=== PATIENT | female | born 1975 | race African-American/Black ===

== ENCOUNTER 2016-07-27 11:43 | Emergency (ER) | payer OTHER ==
[2016-07-27 11:53] VITALS: BP 154/82; PULSE 83; TEMP 98.8; BMI 41.6
--- NOTE | 2016-07-27 12:15 | PDOC ---
History of Present Illness - General Chief Complaint: Asthma Stated Complaint: SOB/WHEEZING Time Seen by Provider: 07/27/16 12:04 History Source: Patient Exam Limitations: No Limitations - History of Present Illness Initial Comments: 07/27/16 12:10 40 yr female with history of asthma, sarcoidosis presents with cough for 2 weeks getting worse with chest tightness and pain to the middle of her chest. Pt pulmonary is . Severity: reports: moderate Possible Cause: Yes: frequent episodes Associated Symptoms: reports: chest pain/soreness Past History - Past Medical History Allergies/Adverse Reactions: Allergies Allergy/AdvReac Type Severity Reaction Status Date / Time No Known Allergies Allergy Verified 07/27/16 11:49 Home Medications: Ambulatory Orders Mometasone Furoate [Asmanex Hfa] 13 gm IH DAILY 07/27/16 Prednisone [Deltasone -] 40 mg PO DAILY #10 tablet 07/27/16 Anemia: No Asthma: Yes Cancer: No Cardiac Disorders: No CVA: No COPD: No CHF: No Dementia: No Diabetes: No GI Disorders: No Disorders: Yes (CERVICAL BIOPSY 1999) HTN: No Hypercholesterolemia: No Liver Disease: No Seizures: No Thyroid Disease: No - Surgical History Abdominal Surgery: No Appendectomy: Yes Cardiac Surgery: No Cholecystectomy: No Lung Surgery: Yes Neurologic Surgery: No Orthopedic Surgery: No - Immunization History Immunization Up to Date: Yes - Psycho/Social/Smoking Cessation Hx Anxiety: No Suicidal Ideation: No Smoking Status: No Smoking History: Former smoker Have you smoked in the past 12 months: No Number of Cigarettes Smoked Daily: 0 Information on smoking cessation initiated: No Hx Alcohol Use: No Drug/Substance Use Hx: No Substance Use Type: None Respiratory Specific PMHX - Complaint Specific PMHX Angina: No Bronchitis: Yes Pneumonia: Yes Pulmonary Embolus: No Review of Systems - Review of Systems Able to Perform ROS?: Yes Is the patient limited Sami proficient: No Constitutional: No: Symptoms Reported HEENTM: Yes: See HPI Respiratory: Yes: See HPI Cardiac (ROS): Yes: See HPI *Physical Exam - Vital Signs Last Vital Signs Temp Pulse Resp BP Pulse Ox 98.8 F 83 22 154/82 100 07/27/16 11:49 07/27/16 11:49 07/27/16 11:49 07/27/16 11:49 07/27/16 11:49 - Physical Exam General Appearance: Yes: Nourished, Appropriately Dressed HEENT: positive: EOMI, KENDRA, TMs Normal, Pharynx Normal Neck: positive: Supple Respiratory/Chest: positive: Chest Tender (midsternal tender to palpation), Normal Breath Sounds Cardiovascular: positive: Regular Rhythm, Regular Rate Gastrointestinal/Abdominal: positive: Normal Bowel Sounds, Soft Extremity: positive: Normal Capillary Refill, Normal Inspection, Normal Range of Motion Integumentary: positive: Normal Color, Dry, Warm Neurologic: positive: Fully Oriented, Alert, Normal Mood/Affect, Normal Response , Motor Strength 08/31 ED Treatment Course - Consult/PCP Time Called: 13:00 Case discussed with personal care physician: Alan Laws Medical Decision Making - Medical Decision Making 07/27/16 12:13 cc: chest pain tender to touch reproduced with cough no fever productive phlegm will r/o chest xray no wheezing on exam, pt received albuterol neb in triage prior to my exam. vitals are stable 07/27/16 12:58 CXR is normal no evidence of pneumonia. no wheezing 07/27/16 13:08 case discussed with . CXR reviewed. will place on prednisone for 5 days follow up Saturday with . Pt agrees with the plan all questions asked and answered at discharge. 07/27/16 14:15 *DC/Admit/Observation/Transfer Diagnosis at time of Disposition: Sarcoidosis - Discharge Dispostion Disposition: HOME Condition at time of disposition: Good - Prescriptions Prescriptions: Prednisone [Deltasone -] 40 mg PO DAILY #10 tablet - Referrals Referrals: Aida Espinosa MD [Primary Care Provider] - - Patient Instructions Additional Instructions: follow with on Saturday prednisone as directed next dose tomorrow drink pleanty of fluids to stay hydrated rest at home no activity please return if any worsening symptoms
[2016-07-27] MEDS ORDERED: IBUPROFEN 400 MG TABLET (FP) PO ONE ×2 (12:31→12:37)
[2016-07-27] MEDS ORDERED: predniSONE 20 MG TABLET (UD) PO ONE (13:22)
[2016-07-27] MEDS ORDERED: predniSONE 20 MG TABLET (UD) ONE (13:23)
== END 2016-07-27 13:25 | disposition home or self-care (01) ==
LOC: JERFT 11:43
DX: D86.89 Sarcoidosis of other sites (principal); J45.909 Unspecified asthma, uncomplicated
CPT/HCPCS: 71020-TC; 84703; 99281-25

== ENCOUNTER 2019-05-30 23:59 | Emergency (ER) | payer OTHER ==
[2019-05-31 00:14] VITALS: TEMP 99.3; BMI 32.5
--- NOTE | 2019-05-31 00:45 | PDOC ---
History of Present Illness - General Chief Complaint: Chest Pain Stated Complaint: CHEST PAIN/ASTHMA Time Seen by Provider: 05/31/19 00:36 History Source: Patient - History of Present Illness Initial Comments: 05/31/19 00:46 The patient is 43 y/o female with a PMHx of sarcoidosis and asthma who here today for 3 day h/o cough and 2 day h/o chest pain. Pain is constant, R sided, stabbing and worse with movement and breathing. No lightheadedness, palpitations, nausea, diaphoresis. Cough is intermittently productive of clear sputum. NKDA Surgical: lung biopsy, appendectomy Social: denies toxic habits As per EMR previous visits for similar pain. Past History - Past Medical History Allergies/Adverse Reactions: Allergies Allergy/AdvReac Type Severity Reaction Status Date / Time No Known Allergies Allergy Verified 05/31/19 00:09 Home Medications: Ambulatory Orders Mometasone Furoate [Asmanex Hfa] 13 gm IH DAILY 07/27/16 predniSONE [Deltasone -] 40 mg PO DAILY #10 tablet 07/27/16 Lidocaine 5% Patch [Lidoderm -] 1 patch TP DAILY #7 patch 05/31/19 Methocarbamol [Robaxin -] 500 mg PO BID #14 tablet 05/31/19 Anemia: No Asthma: Yes Cancer: No Cardiac Disorders: No CVA: No COPD: No CHF: No Dementia: No Diabetes: No GI Disorders: No Disorders: Yes (CERVICAL BIOPSY 1999) HTN: No Hypercholesterolemia: No Liver Disease: No Seizures: No Thyroid Disease: No - Surgical History Abdominal Surgery: No Appendectomy: Yes Cardiac Surgery: No Cholecystectomy: No Lung Surgery: Yes Neurologic Surgery: No Orthopedic Surgery: No - Immunization History Immunization Up to Date: Yes - Psycho Social/Smoking Cessation Hx Smoking Status: No Smoking History: Never smoked Have you smoked in the past 12 months: No Number of Cigarettes Smoked Daily: 0 Information on smoking cessation initiated: No Hx Alcohol Use: No Drug/Substance Use Hx: No Substance Use Type: None Review of Systems - Review of Systems Constitutional: No: Chills, Fever HEENTM: No: Blurred Vision, Double Vision Respiratory: Yes: Productive cough Cardiac (ROS): Yes: Chest Pain. No: Syncope ABD/GI: No: Constipated, Diarrhea, Nausea, Vomiting : No: Burning, Dysuria *Physical Exam - Vital Signs Last Vital Signs Temp Pulse Resp BP Pulse Ox 99.3 F 93 H 20 125/85 97 05/31/19 00:10 05/31/19 00:10 05/31/19 00:10 05/31/19 00:10 05/31/19 00:10 - Physical Exam 05/31/19 00:50 Triage VS reviewed Awake, alert Lower R sternal reproducible chest tenderness Diffuse wheezes on anterior and posterior lung hess Belly soft, non-tender No lower extremity edema Heart Score/ECG Review - ECG Impressions Comment:: 05/31/19 00:55 HR 88 NSR, no TRISTAN/STD/TWI ED Treatment Course - LABORATORY CBC & Chemistry Diagram: 05/31/19 01:12 05/31/19 01:12 Medical Decision Making - Medical Decision Making 05/31/19 00:53 43 y/o female with 2 day h/o stabbing pleuritic chest pain EKG non-ischemic as documented in EKG section of EMR VS unremarkable Diffuse wheezing on PE Will give Duo Neb, CXR to evaluate for PNA, also consider viral URI vs. viral bronchitis. Low clinical suspicion for ACS however will obtain Troponin x1 05/31/19 04:26 Symptomatically improved s/p Duo Neb Troponin (-) x1 Leukocytosis (14.1) - likely 2/2 to viral etiology - no indication for Abx Will d/c home w/return precautions Discharge - Discharge Information Problems reviewed: Yes Clinical Impression/Diagnosis: Chest wall pain Condition: Improved Disposition: HOME - Admission No - Additional Discharge Information Prescriptions: Lidocaine 5% Patch [Lidoderm -] 1 patch TP DAILY #7 patch Methocarbamol [Robaxin -] 500 mg PO BID #14 tablet - Follow up/Referral Referrals: Aida Espinosa MD [Primary Care Provider] - - Patient Discharge Instructions Patient Printed Discharge Instructions: DI for Atypical Chest Pain Additional Instructions: We have sent a prescription to your pharmacy. Please take as directed. Follow-up with your primary care doctor in the next 3 days. Your care is not complete until you are evaluated by your primary care doctor. Return to the Emergency Department for any new/worsening/concerning symptoms. - Post Discharge Activity
[2019-05-31] MEDS ORDERED: ALBUTEROL SO4 2.5/IPRATROPIUM 0.5 INH SOL 3 ML VIAL.NEB. NEB ONE ×2 (00:46→01:03)
--- NOTE | 2019-05-31 00:54 | PDOC ---
Attending Attestation - Resident Resident Name: Chasity Rg - ED Attending Attestation I have performed the following: I have examined & evaluated the patient, The case was reviewed & discussed with the resident, I agree w/resident's findings & plan - HPI HPI: 05/31/19 01:16 Pt comes with sarcoid/asthma, and cough cold viral illness that is resulting in cough induced muscular chest pain. Pt has no fevers and no chills. She states that she has asthma exacerbation in the wintertime. She has no fevers and no chills. Only complaint is chest pain. - Physicial Exam PE: 05/31/19 01:17 Agree with resident exam. 05/31/19 02:01 No rashes afebrile pt has a cough, but no wheeze heart RRR Chest wall pain with deep inspiration adn cough abd soft NT ND - Medical Decision Making 05/31/19 01:52 Labs pending; CXR; analgesics and home. 05/31/19 02:28 Pt feels great and she is ready to go home. We will cancel the CXR Discharge - Discharge Information Problems reviewed: Yes Clinical Impression/Diagnosis: Chest wall pain Condition: Improved Disposition: HOME - Admission No - Additional Discharge Information Prescriptions: Lidocaine 5% Patch [Lidoderm -] 1 patch TP DAILY #7 patch Methocarbamol [Robaxin -] 500 mg PO BID #14 tablet - Follow up/Referral Referrals: Aida Espinosa MD [Primary Care Provider] - - Patient Discharge Instructions Patient Printed Discharge Instructions: DI for Atypical Chest Pain - Post Discharge Activity Heart Score/ECG Review - ECG Intrepretation Rhythm: Regular Rhythm - Henagar Henagar: Normal - P and UT Delta Wave(s) Present: No WPW: No - QRS Poor R Wave Progression: No Q Wave Present: No - ST and T Early Repolarization: No Non Specific ST-T Wave changes: No - ECG Impressions Normal ECG: Yes Non-specific ST Elevation: No Ischemic Changes: No Bradycardia: No Torsades jakub Pointes: No WPW: No
[2019-05-31] MEDS ORDERED: ACETAMINOPHEN 1000 MG/100 ML VIAL (NON FORMULARY) IVPB ONE (01:15)
[2019-05-31] MEDS ORDERED: LIDOCAINE 5% TOPICAL PATCH TP ONE (01:15)
[2019-05-31] MEDS ORDERED: METHOCARBAMOL 500 MG TABLET ONE (01:15)
[2019-05-31] MEDS ORDERED: METHOCARBAMOL 500 MG TABLET PO ONE (01:15)
[2019-05-31] MEDS ORDERED: LIDOCAINE 5% TOPICAL PATCH ONE (01:16)
[2019-05-31] MEDS ORDERED: ACETAMINOPHEN INJECTION 100 ML IVPB ONE (01:16)
[2019-05-31 01:33] LABS: BASO % 0.7 % (0-2.0); EOS % 1.8 % (0-4.5); HEMATOCRIT 39.9 % (32.4-45.2); HEMOGLOBIN 13.5 GM/dL (10.7-15.3); LYMPH % 16.3 % (8-40); MCH 32.7 pg (25.7-33.7); MCHC 33.9 g/dl (32.0-36.0); MEAN CELL VOLUME 96.5 fl (80-96); NEUT % 76.2 % (42.8-82.8); PLATELET COUNT 176 K/MM3 (134-434); RBC 4.14 M/mm3 (3.60-5.2); RDW 13.8 % (11.6-15.6); WHITE BLOOD COUNT 14.1 K/mm3 (4.0-10.0)
[2019-05-31 02:24] LABS: ALBUMIN 3.2 g/dl (3.4-5.0); BILIRUBIN,TOTAL 0.7 mg/dL (0.2-1); BLOOD UREA NITROGEN 15.8 mg/dL (7-18); POTASSIUM 3.9 mmol/L (3.5-5.1); TOT PROT 6.5 g/dl (6.4-8.2)
[2019-05-31 03:15] VITALS: BP 118/71; PULSE 61
--- NOTE | 2019-05-31 14:02 | EKG ---
Test Reason : Blood Pressure : / mmHG Vent. Rate : 088 BPM Atrial Rate : 088 BPM P-R Int : 142 ms QRS Dur : 084 ms QT Int : 346 ms P-R-T Axes : 085 062 052 degrees QTc Int : 418 ms NORMAL SINUS RHYTHM LEFT ATRIAL ENLARGEMENT BORDERLINE ECG WHEN COMPARED WITH ECG OF 04-AUG-2015 10:56, VENT. RATE HAS INCREASED BY 36 BPM Confirmed by MD CARISA, HARSHA ([id number]) on 05/31/2019 2:02:11 PM Referred By: Confirmed By:HARSHA YOUNGER MD
[2019-05-31] MEDS ORDERED: LIDOCAINE PATCH REMOVAL MC SCH (22:00)
== END 2019-05-31 03:18 | disposition home or self-care (01) ==
LOC: JER 23:59
PROC: 3E0F7GC Introduction of Other Therapeutic Substance into Respiratory Tract, Via Natural or Artificial Opening (ICD-10-PCS; principal; 2019-05-30)
PROC: 3E033NZ Introduction of Analgesics, Hypnotics, Sedatives into Peripheral Vein, Percutaneous Approach (ICD-10-PCS; 2019-05-30)
DX: R07.9 Chest pain, unspecified (principal); J45.909 Unspecified asthma, uncomplicated; D86.9 Sarcoidosis, unspecified
CPT/HCPCS: 36415; 80053; 82550; 82553; 84484; 84703; 85025; 93005; 93010; 94640; 96374; 99283-25; J0131

== ENCOUNTER 2022-03-10 10:08 | Day surgery (SDC) | payer OTHER ==
[2022-03-10] MEDS ORDERED: FERRIC CARBOXYMALTOSE 750 MG in SODIUM CHLORIDE 250 ML IVPB SCH (11:15)
[2022-03-10 12:58] VITALS: BP 136/78; PULSE 78; RESP 18; TEMP 98.2
== END 2022-03-10 12:58 | disposition home or self-care (01) ==
LOC: FM/S 10:08 → FINFUSION 10:08
PROVIDERS: ATTEND Family Medicine
PROC: 3E033GC Introduction of Other Therapeutic Substance into Peripheral Vein, Percutaneous Approach (ICD-10-PCS; principal; 2022-03-10)
DX: D50.9 Iron deficiency anemia, unspecified (principal)
CPT/HCPCS: 81025; 96365; J1439

== ENCOUNTER → 2022-05-15 | Day surgery (SDC) | payer OTHER | END | disposition home or self-care (01) | LOC: JRADIR 09:28 | PROVIDERS: ATTEND Otolaryngology | PROC: 0G9K3ZX Drainage of Thyroid Gland, Percutaneous Approach, Diagnostic (ICD-10-PCS; principal; 2022-05-15) | DX: E04.1 Nontoxic single thyroid nodule (principal) | CPT/HCPCS: 10005; 76942; 88173; 88305-TC ==